=== PATIENT | male | born 1945 | race African-American/Black ===

== ENCOUNTER 2020-12-04 17:38 | Emergency (ER) | payer OTHER ==
[2020-12-04] MEDS ORDERED: ACETAMINOPHEN500 M1 PO (19:10)
== END 2020-12-04 19:22 | disposition home or self-care (01) ==
LOC: FER 17:38
DX: S46.912A Strain of unspecified muscle, fascia and tendon at shoulder and upper arm level, left arm, initial encounter (principal); S16.1XXA Strain of muscle, fascia and tendon at neck level, initial encounter; S90.01XA Contusion of right ankle, initial encounter; I10 Essential (primary) hypertension; V49.40XA Driver injured in collision with unspecified motor vehicles in traffic accident, initial encounter; Y92.410 Unspecified street and highway as the place of occurrence of the external cause
CPT/HCPCS: 72040; 73030; 73610